=== PATIENT | female | born 1965 | race Caucasian/White ===

== ENCOUNTER → 2016-06-30 | Outpatient (CLI) | payer OTHER | LOC: MC.RAD 14:20 | DX: Z12.31 Encounter for screening mammogram for malignant neoplasm of breast (principal) ==

== ENCOUNTER → 2016-11-14 | Outpatient (CLI) | payer OTHER | LOC: BHSO 13:46 | DX: F41.1 Generalized anxiety disorder (principal); F33.1 Major depressive disorder, recurrent, moderate ==

== ENCOUNTER → 2016-12-15 | Outpatient (CLI) | payer OTHER | LOC: COL.RAD 12-11 13:15 | DX: M54.42 Lumbago with sciatica, left side (principal); M54.41 Lumbago with sciatica, right side; Z98.890 Other specified postprocedural states | CPT/HCPCS: A9585 ==

== ENCOUNTER → 2016-12-27 | Outpatient (CLI) | payer OTHER | LOC: BHSO 13:34 | DX: F41.1 Generalized anxiety disorder (principal) ==

== ENCOUNTER → 2017-02-07 | Outpatient (CLI) | payer OTHER | LOC: BHSO 14:49 | DX: F41.1 Generalized anxiety disorder (principal) ==

== ENCOUNTER → 2017-03-21 | Outpatient (CLI) | payer OTHER | LOC: BHSO 15:37 | DX: F41.1 Generalized anxiety disorder (principal) ==

== ENCOUNTER → 2017-05-04 | Outpatient (CLI) | payer OTHER | LOC: BHSO 09:59 | DX: F41.1 Generalized anxiety disorder (principal) | CPT/HCPCS: G0463 ==

== ENCOUNTER → 2017-08-20 | Outpatient (CLI) | payer OTHER | LOC: BHSO 10:18 | DX: F41.1 Generalized anxiety disorder (principal) | CPT/HCPCS: G0463 ==

== ENCOUNTER → 2017-10-01 | Outpatient (CLI) | payer OTHER | LOC: BHSO 09:20 | DX: F31.81 Bipolar II disorder (principal) | CPT/HCPCS: G0463 ==

== ENCOUNTER → 2017-12-31 | Outpatient (CLI) | payer OTHER | LOC: BHSO 10:10 | DX: F31.81 Bipolar II disorder (principal) | CPT/HCPCS: G0463 ==

== ENCOUNTER → 2018-04-08 | Outpatient (CLI) | payer OTHER | LOC: BHSO 09:49 | DX: F41.1 Generalized anxiety disorder (principal) | CPT/HCPCS: G0463 ==

== ENCOUNTER → 2018-10-07 | Outpatient (CLI) | payer BC | LOC: BHSO 08:50 | DX: F31.81 Bipolar II disorder (principal) | CPT/HCPCS: G0463 ==

== ENCOUNTER 2021-02-07 15:43 | Emergency (ER) | payer OTHER ==
[~2021-02-07] VITALS: Ht 172.7 cm; Wt 80.5 kg
[2021-02-07 16:09] VITALS: TEMP 99.2
[2021-02-07 17:25] LABS: BASO % 0.4 % (0.0-2.0); EOS # 0.1 K/mm3 (0.0-0.7); EOS % 2.9 % (0-4.0); GRAN # 3.2 K/mm3 (1.4-6.5); HEMATOCRIT 40.4 % (37.0-47.0); HEMOGLOBIN 13.5 g/dl (12.5-16.0); LYMPH # 0.9 K/mm3 (1.2-3.4); LYMPH % 19.7 % (20.0-51.0); MEAN CELL VOLUME 86 fl (80.0-100.0); MEAN CORPUSCULAR HEMOGLOBIN 29 pg (27.0-31.0); MEAN CORPUSCULAR HGB CONC 33 g/dl (33.0-37.0); MEAN PLATELET VOLUME 10.1 fl (7.4-10.4); MONO # 0.3 K/mm3 (0.1-0.6); MONO % 5.8 % (1.7-9.3); PLATELET COUNT 249 K/mm3 (130-400); RED BLOOD COUNT 4.72 M/mm3 (4.10-5.30); REDCELL DISTRIBUTION WIDTH-CV 12.1 % (11.5-14.5)
[2021-02-07 17:41] LABS: ALBUMIN 3.6 gm/dL (3.5-5.0); BILIRUBIN,TOTAL 0.4 mg/dL (0.2-1.2); C-REACTIVE PROTEIN 0.81 mg/dL (0.00-0.50); CALCIUM 9.2 mg/dL (8.4-10.2); CREATININE, serum 0.81 mg/dL (0.57-1.11); POTASSIUM 3.6 mmol/L (3.5-4.5); TOTAL PROTEIN 6.8 gm/dL (6.2-8.1)
[2021-02-07 20:01] VITALS: BP 108/65; PULSE 70
== END 2021-02-07 20:03 | disposition home or self-care (01) ==
LOC: COL.ER 15:43
PROVIDERS: Nurse Practitioner
DX: U07.1 COVID-19 (principal); Z73.0 Burn-out
CPT/HCPCS: J7030; M0243; Q0244

== ENCOUNTER → 2021-02-14 | Outpatient (CLI) | payer OTHER | LOC: MC.RAD 11:58 | DX: Z12.31 Encounter for screening mammogram for malignant neoplasm of breast (principal) ==

== ENCOUNTER → 2021-03-10 | Outpatient (CLI) | payer OTHER | LOC: COL.RAD 07:39 | DX: M51.17 Intervertebral disc disorders with radiculopathy, lumbosacral region (principal); M48.07 Spinal stenosis, lumbosacral region; Z98.890 Other specified postprocedural states ==

== ENCOUNTER → 2021-08-03 | Outpatient (CLI) | payer OTHER | LOC: MHCPAIN 12:44 | DX: M47.817 Spondylosis without myelopathy or radiculopathy, lumbosacral region (principal); M53.3 Sacrococcygeal disorders, not elsewhere classified; M54.16 Radiculopathy, lumbar region; M96.1 Postlaminectomy syndrome, not elsewhere classified | CPT/HCPCS: G0463 ==

== ENCOUNTER → 2021-08-11 | Outpatient (CLI) | payer OTHER | LOC: MHCPAIN 12:23 | DX: M47.817 Spondylosis without myelopathy or radiculopathy, lumbosacral region (principal); M53.3 Sacrococcygeal disorders, not elsewhere classified; M54.17 Radiculopathy, lumbosacral region | CPT/HCPCS: J1100; Q9967 ==

== ENCOUNTER → 2021-08-30 | Outpatient (CLI) | payer OTHER | LOC: MHCPAIN 12:00 | DX: M47.897 Other spondylosis, lumbosacral region (principal); M54.16 Radiculopathy, lumbar region; M53.3 Sacrococcygeal disorders, not elsewhere classified; M96.1 Postlaminectomy syndrome, not elsewhere classified | CPT/HCPCS: G0463 ==

== ENCOUNTER → 2022-01-23 | Outpatient (CLI) | payer OTHER | LOC: MHCPAIN 13:16 | DX: M47.896 Other spondylosis, lumbar region (principal); M54.17 Radiculopathy, lumbosacral region; M96.1 Postlaminectomy syndrome, not elsewhere classified | CPT/HCPCS: G0463; J0461; J1100; Q9967 ==